=== PATIENT | male | born 1970 | race Caucasian/White ===

== ENCOUNTER 2019-05-24 13:09 | Emergency (ER) | payer OTHER ==
[~2019-05-24] VITALS: Ht 185.4 cm; Wt 144.0 kg
[2019-05-24] MEDS ORDERED: ALLO300T PO (13:35)
[2019-05-24] MEDS ORDERED: LISI-170 PO (13:35)
[2019-05-24] MEDS ORDERED: AMLO10TA8 PO (13:35)
[2019-05-24] MEDS ORDERED: NEBI10TA3 PO (13:35)
--- NOTE | 2019-05-24 13:38 | NUR ---
Pt ambulated back to room with a smooth and steady gait, call light within reach, changed into gown, P/W/D, placed on monitor, resting on gurney, NAD, denies additional needs at this time, RESP WNL. Larry YANCEY at bedside for eval and discussing POC, WCTM.
--- NOTE | 2019-05-24 13:59 | NUR ---
vitals and ekg obtained by this tech
[2019-05-24] MEDS ORDERED: SODIUM CHLORIDE FLUSH 10ML SYR IVF ONE (14:00)
[2019-05-24] MEDS ORDERED: ASPIRIN 81 MG TABLET CHEW PO ONE (14:00)
[2019-05-24 14:13] LABS: BASOPHILS # (AUTO) 0.02 x10^3/uL (0-0.1); BASOPHILS % (AUTO) 0 % (0-1); EOSINOPHILS # (AUTO) 0.15 x10^3/uL (0-0.4); EOSINOPHILS % (AUTO) 3 % (1-7); LYMPHOCYTES # (AUTO) 1.65 x10^3/uL (1-3.4); LYMPHOCYTES % (AUTO) 28 % (22-44); MD NO; MEAN CORPUSCULAR HEMOGLOBIN 30.5 pg (27.5-34.5); MEAN CORPUSCULAR HGB CONC 33.5 g/dL (33.2-36.2); MEAN CORPUSCULAR VOLUME 90.9 fL (81-97); MEAN PLATELET VOLUME 8.1 fL (7.4-10.4); MONOCYTES # (AUTO) 0.75 x10^3/uL (0.2-0.8); MONOCYTES % (AUTO) 13 % (2-9); NEUTROPHILS # (AUTO) 3.43 x10^3/uL (1.8-6.8); NEUTROPHILS % (AUTO) 57 % (42-75); PLATELET COUNT 314 x10^3/uL (130-400); RED BLOOD COUNT 5.13 x10^6/uL (4.38-5.82); RED CELL DISTRIBUTION WIDTH 13.6 % (9.4-14.8)
[2019-05-24 14:24] LABS: ALANINE AMINOTRANSFERASE 67 U/L (12-78); ALBUMIN 3.5 g/dL (3.4-5.0); ANION GAP 7 mmol/L (5-15); CALCIUM 9.3 mg/dL (8.5-10.1); CHLORIDE 107 mmol/L (98-107)
[2019-05-24 14:28] LABS: ALKALINE PHOSPHATASE 48 U/L (45-117); BILIRUBIN,TOTAL 0.6 mg/dL (0.2-1.0); TROPONIN I < 0.015 ng/mL (0.000-0.045)
--- NOTE | 2019-05-24 14:30 | NUR ---
Late Entry: Pt resting in [facility], watching television, on monitor, NAD, P/W/D, call light within reach. waiting for repeat trop. WCTM
--- NOTE | 2019-05-24 15:32 | NUR ---
Pt resting in [facility], watching television, on monitor, NAD, P/W/D, call light within reach. waiting for repeat trop. WCTM
--- NOTE | 2019-05-24 16:22 | NUR ---
lab called for repeat trop. Pt sitting up in [facility] [place] watching tv, NAD, P/W/D, ABC intact, WCTM.
[2019-05-24 16:50] LABS: TROPONIN I < 0.015 ng/mL (0.000-0.045)
[2019-05-24 17:15] VITALS: BP 130/90
--- NOTE | 2019-05-24 17:16 | NUR ---
Patient given discharge instructions and they have confirmed that they understand the instructions. Patient ambulatory with steady gait. Denies additional questions, informed to follow up with cardiology. Pt verbalized understanding. NAD, P/W/D.
== END 2019-05-24 17:22 | disposition home or self-care (01) ==
LOC: ED 14:08
DX: R07.89 Other chest pain (principal); Z20.828 Contact with and (suspected) exposure to other viral communicable diseases; R50.9 Fever, unspecified; R05 Cough; R94.31 Abnormal electrocardiogram [ECG] [EKG]
CPT/HCPCS: 36415; 71045; 80053; 84484; 85025; 85379; 93005; 99285; U0001

== ENCOUNTER → 2019-12-17 | Outpatient (CLI) | payer OTHER ==
[~2019-12-17] MED LIST: ALLO300T PO; AMLO-211 PO; LISI-170 PO; NEBI10TA3 PO
== END | disposition home or self-care (01) ==
LOC: CVU 13:37
PROVIDERS: ATTEND Internal Medicine Cardiovascular Disease
DX: I34.0 Nonrheumatic mitral (valve) insufficiency (principal); I10 Essential (primary) hypertension; Z82.49 Family history of ischemic heart disease and other diseases of the circulatory system
CPT/HCPCS: 93306

== ENCOUNTER → 2020-02-03 | Outpatient (CLI) | payer OTHER | END | disposition home or self-care (01) | LOC: CFH 08:21 | PROVIDERS: ATTEND Internal Medicine Cardiovascular Disease | DX: I10 Essential (primary) hypertension (principal); Z82.49 Family history of ischemic heart disease and other diseases of the circulatory system | CPT/HCPCS: 78452; 93017; A9502 ==